=== PATIENT | female | born 1990 | race Caucasian/White ===

== ENCOUNTER 2018-05-14 09:15 | Inpatient (IN) | payer OTHER ==
[2018-05-14] MEDS ORDERED: Penicillin G 5 Million Unit Vial IVPB ONE (10:14)
[2018-05-14] MEDS ORDERED: Lactated Ringer's 1,000 ML IV ONE (10:14)
[2018-05-14] MEDS ORDERED: Lactated Ringer's 1,000 ML IV SCH (10:15)
[2018-05-14 10:36] LABS: BASO % 0.7 % (0.0-2.0); EOS # 0.1 K/uL (0.0-0.7); EOS % 1.9 % (0.0-4.0); HEMOGLOBIN 11.2 g/dL (11.0-16.0); LYMPH # 1.9 K/uL (1.0-4.3); LYMPH % 35.5 % (20.0-40.0); MEAN CELL VOLUME 78.8 fL (81.0-99.0); MEAN CORPUSCULAR HGB CONC 34.2 g/dL (33.0-37.0); MEAN PLATELET VOLUME 7.9 fL (7.2-11.7); MONO # 0.3 K/uL (0.0-0.8); MONO % 5.6 % (0.0-10.0); NEUT % 56.3 % (50.0-75.0); NRBC % 0.1 % (0.0-2.0); RBC 4.15 Mil/uL (3.80-5.20); RED CELL DISTRIBUTION WIDTH 15.6 % (11.5-14.5); WHITE BLOOD COUNT 5.4 K/uL (4.8-10.8)
[2018-05-14 10:48] LABS: ALBUMIN 3.8 g/dL (3.5-5.0); ALT/SGPT 16 U/L (9-52); AST/SGOT 18 U/L (14-36); BLOOD UREA NITROGEN 11 mg/dL (7-17); CALCIUM 9.4 mg/dl (8.6-10.4); GFR NON-AFRICAN AMERICAN > 60
[2018-05-14] MEDS ORDERED: Oxycodone/Acetaminophen 5/325 mg Tab PO PRN ×2 (11:01)
[2018-05-14] MEDS ORDERED: Benzocaine/Menthol 20%-0.5% Topical Spray (60 ml) TOP PRN (11:01)
[2018-05-14] MEDS ORDERED: Bupivacaine HCl/FentaNYL Cit 100 ML EPI ONE (11:02)
[2018-05-14] MEDS ORDERED: Oxytocin 30 UNIT 30 UNITS/500 ML BAG IV ONE ×2 (11:30→12:15)
[2018-05-14 13:35] LABS: SQUAMOUS EPITHIAL 3 /hpf (0-5); URINE BILIRUBIN NEGATIVE (NEGATIVE); URINE BLOOD NEGATIVE (NEGATIVE); URINE CLARITY Clear (Clear); URINE COLOR Straw (YELLOW); URINE GLUCOSE (UA) NORMAL (Normal); URINE LEUKOCYTE ESTERASE NEG Leu/uL (Negative); URINE PROTEIN NEGATIVE (NEGATIVE); URINE UROBILINOGEN NORMAL mg/dL (0.2-1.0)
--- NOTE | 2018-05-14 15:01 | OBHP ---
Datetime: 05/14/2018 14:32 Vital Signs Provider: Reviewed; Within Normal Limits Dilatation, Provider: 7 Effacement, Provider: 90 Station, Provider: 0 Datetime: 05/14/2018 10:34 IP Adm Impression: Term, intrauterine IP Admit Plan: Admit to unit Admit Comment, IP Provider: REGGIE "contractions, leakage of fluid" HPI: 28 year old at 39 weeks 0 days by US at 6.6 weeks on 10/05, per recdords and presented with complains of contractions described as low back and abdominal pain every 5 minutes. Sh e states her contractions started yesterday morning at 8am and have progressively worsened since. She states she has had leakage of fluid and blood which started last night at 8pm. She states she soaked her underwear twice last night. She admits to movement. Pt was interviewed via [employer] translation System. OBhx: 2009: Full term, baby boy, no complicaitons 2011: Full term, baby boy, no complications 2012: Full term, baby boy, no complications 2017: ectopic at 8 weeks, no surgery B[employer] SHE[employer]VER hx: LMP unsure Allergies: NKDA Medications: vitamins, Fe PMHx: anemia PSHx: none Social hx: denies alcohol, tobacco and drug use. . Assessment: 1. Term /Multiparity 2. SROM with bloody tinged fluid for more than 12 hours 3. Early labor 4. NST reactive 5. GBS Positive 6. Requesting an Epidural Plan: 1. Admit to L_D 2. Diet: NPO 3. IVF: LR @ 125cc/hr 4. Will start on Pen G for GBS prophylaxis 5. Will augment labor with Pitocin 6. Will order an EpidurAL 7. Anticipate a vaginal delivery 5. GBS positive per records Case discussed with Dr. Ren Terry, PGY1 Pelvic Type - PN: Adequate Extremities - PN: Normal Abdomen - PN: Normal Back - PN: Normal Breast - PN: Not Done Lungs - PN: Normal Heart - PN: Normal Thyroid - PN: Normal Neurologic - PN: Normal HEENT - PN: Normal General - PN: Normal FHR - Baseline A Provider: 140 Amniotic Fluid Color, Provider: Bloody Membranes, Provider: Ruptured Comments, ACOG Physical Exam: Gravid abdomen. Fundal height consistent with dates. Amnisure positive . IP Hx Assessment: The History has been Reviewed and is Current EGA AdmitDate IP: 40.5 IP Chief Complaint: Uterine contractions; Suspected ruptured membranes NICHD Variability Prov Fetus A: Moderate 6-25bpm NICHD Accel Fetus A IP Provider: 10X10 NICHD Decel Fetus A IP Provider: None Genitourinary Exam: Normal DTRs - PN: Normal
--- NOTE | 2018-05-14 15:10 | OBADHP ---
Datetime: 05/14/2018 14:32 FHR - Baseline A Provider: 130 Amniotic Fluid Color, Provider: Clear Membranes, Provider: Ruptured Contraction Comments Provider: 2-3 mins with Pitocin at 6 mU/min Vital Signs Provider: Reviewed; Within Normal Limits NICHD Variability Prov Fetus A: Moderate 6-25bpm NICHD Accel Fetus A IP Provider: 10X10 NICHD Decel Fetus A IP Provider: None Dilatation, Provider: 7 Effacement, Provider: 90 Station, Provider: 0 Datetime: 05/14/2018 10:34 Admit Comment, IP Provider: CC "contractions, leakage of fluid" HPI: 28 year old at 39 weeks 0 days by US at 6.6 weeks on 10/05, per recdords and presented with complains of contractions described as low back and abdominal pain every 5 minutes. Sh e states her contractions started yesterday morning at 8am and have progressively worsened since. She states she has had leakage of fluid and blood which started last night at 8pm. She states she soaked her underwear twice last night. She admits to movement. Pt was interviewed via [employer] translation System. 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 . Assessment: 1. Term /Multiparity 2. SROM with bloody tinged fluid for more than 12 hours 3. Early labor 4. NST reactive 5. GBS Positive 6. Requesting an Epidural Plan: 1. Admit to L_D 2. Diet: NPO 3. IVF: LR @ 125cc/hr 4. Will start on Pen G for GBS prophylaxis 5. Will augment labor with Pitocin 6. Will order an EpidurAL 7. Anticipate a vaginal delivery Case discussed with Dr. Ren Terry, PGY1 Pelvic Type - PN: Adequate Extremities - PN: Normal Abdomen - PN: Normal Back - PN: Normal Breast - PN: Not Done Lungs - PN: Normal Heart - PN: Normal Thyroid - PN: Normal Neurologic - PN: Normal HEENT - PN: Normal General - PN: Normal Comments, ACOG Physical Exam: Gravid abdomen. Fundal height consistent with dates. Amnisure positive . IP Hx Assessment: The History has been Reviewed and is Current IP Chief Complaint: Uterine contractions; Suspected ruptured membranes Genitourinary Exam: Normal DTRs - PN: Normal EGA AdmitDate IP: 40.5 IP Adm Impression: Term, intrauterine IP Admit Plan: Admit to unit
--- NOTE | 2018-05-14 15:38 | OBPN ---
Datetime: 05/14/2018 14:32 IP Progress Impression: Reassuring heart rate IP Informed Consent Obtain: Vaginal Delivery IP Procedures: Sterile Vag Exam; Sterile Speculum Exam IP Progress Plan: Continue present management; Anticipate Vaginal Delivery Membranes, Provider: Ruptured Amniotic Fluid Color, Provider: Clear Contraction Comments Provider: 2-3 mins with Pitocin at 6 mU/min FHR - Baseline A Provider: 130 IP Progress Note Comment: Patient is resting comfortably. Pain well controlled with Epidural. Artificial ROM of residual bag. tracing reassuring Continue Pitocin for augmentation Anticipate vaginal delivery. Case discussed with Dr. Ren Terry, PGY1 Vital Signs Provider: Reviewed; Within Normal Limits NICHD Accel Fetus A IP Provider: 10X10 NICHD Variability Prov Fetus A: Moderate 6-25bpm Dilatation, Provider: 7 Effacement, Provider: 90 Station, Provider: 0 NICHD Decel Fetus A IP Provider: None
[2018-05-14] MEDS ORDERED: Lidocaine 2% MPF (5 ml) Inj ONE (15:53)
--- NOTE | 2018-05-14 16:50 | OBDS ---
DELIVERY PERSONNEL Delivery Doctor: Timothy Mcclure DO Scrub Nurse: Xin Chavarria RN Road Worker: Atiya Odom RN Anesthesiologist: Dr. Pavon Resident: Joey Terry DO MATERNAL INFORMATION Delivery Anesthesia: Epidural Estimated Blood Loss (ml): 200 Placenta Cultured: No Maternal Complications: None RN Comments: Liveborn baby girl Provider Comments: of live female from SHANDRA position with APGARS 9/9, with weight of 6lb s 4oz after transecting nuchal cord x1 and over an intact perineum. No lacerations. EBL of 200ml. Placenta, cord blood obtained and cord blood sent. No complications. Patient and both tolerated procedure well and both remained in the delivery room in stable and satisfactory condition.. Joey Terry, PGY1 LABOR SUMMARY EDC: 05/21/2018 00:00 No. Babies in Womb: 1 LABOR INFORMATION Reason for Induction: Not Applicable Steroids Given: None Reason Steroids Not Administered: Not Applicable MEMBRANES Membranes Rupture Method: Spontaneous Rupture of Membranes: 05/13/2018 20:00 Length of Rupture (hrs): 19.98 Amniotic Fluid Color: Clear Amniotic Fluid Amount: Small Amniotic Fluid Odor: Normal STAGES OF LABOR Stage 3 hrs: 0 Stage 3 min: 5 VAGINAL DELIVERY Episiotomy: None Laceration Extension: N/A Laceration Type: None Laceration Repair: Not Applicable Initial Vag Sponge Count: 10 Final Vag Sponge Count: 10 Initial Vag Sharps Count: 0 Final Vag Sharps Count: 0 Sponge Count Correct: Yes; Vaginal Sweep Performed Sharps Count Correct: Yes BABY A INFORMATION Infant Delivery Date/Time: 05/14/2018 15:59 Method of Delivery: Vaginal Born in Route : No : N/A Forceps: N/A Vacuum Extraction: N/A Shoulder Dystocia : No SHOULDER DYSTOCIA BABY A Delivery Date/Time: 05/14/2018 15:59 PRESENTATION/POSITION BABY A Presentation: Cephalic Cephalic Presentation: Vertex Vertex Position: Right Occipital Anterior Breech Presentation: N/A PLACENTA INFORMATION BABY A Placenta Delivery Time : 05/14/2018 16:04 Placenta Method of Delivery: Spontaneous Placenta Status: Delivered SCORES BABY A Heart Rate 1 min: >100 bpm Resp Effort 1 min: Good Cry Reflex Irritability 1 min: Cough or Sneeze or Pulls Away Muscle Tone 1 min: Active Motion Color 1 min: Body [place], Extremities Blue Resuscitation Effort 1 min: N/A SCORE 1 MIN: 9 Heart Rate 5 min: >100 bpm Resp Effort 5 min: Good Cry Reflex Irritability 5 min: Cough or Sneeze or Pulls Away Muscle Tone 5 min: Active Motion Color 5 min: Body [place], Extremities Blue Resuscitation Effort 5 min: N/A SCORE 5 MIN: 9 INFANT INFORMATION BABY A Gestational Age at Delivery: 39.0 Gestational Status: Term Outcome : Liveborn Condition : Stable Sex: Female IDENTIFICATION/MEDS BABY A ID Band Number: [id number] ID Band Location: Left Leg; Left Arm Sensor Applied: Yes Sensor Number: [id number] Sensor Location : Cord Clamp WEIGHT/LENGTH BABY A Infant Birthweight (gms): 2835 Infant Weight (lb): 6 Weight (oz): 4 Infant Length Inches: 18.50 Length cms: 47.0 CORD INFORMATION BABY A No. Cord Vessels: 3 Nuchal Cord : Around Neck x1, Tight Suction: Mouth; Nose
[2018-05-15] MEDS: Oxycodone/Acetaminophen 5/325 mg Tab PO PRN ×2 (06:52→11:28)
[2018-05-15 07:09] LABS: BASO % 0.5 % (0.0-2.0); EOS # 0.1 K/uL (0.0-0.7); EOS % 1.7 % (0.0-4.0); LYMPH # 1.7 K/uL (1.0-4.3); LYMPH % 33.1 % (20.0-40.0); MEAN CELL VOLUME 79.3 fL (81.0-99.0); MEAN CORPUSCULAR HEMOGLOBIN 26.6 pg (27.0-31.0); MEAN CORPUSCULAR HGB CONC 33.5 g/dL (33.0-37.0); MEAN PLATELET VOLUME 8.2 fL (7.2-11.7); MONO # 0.4 K/uL (0.0-0.8); NEUT % 57.7 % (50.0-75.0); NRBC % 0.2 % (0.0-2.0); RBC 4.16 Mil/uL (3.80-5.20); RED CELL DISTRIBUTION WIDTH 15.6 % (11.5-14.5); WHITE BLOOD COUNT 5.3 K/uL (4.8-10.8)
--- NOTE | 2018-05-15 08:16 | OBPPN ---
Datetime: 05/15/2018 08:11 PP Pain Prov: Within normal limits PP Nausea Prov: Denies PP Flatus Prov: No PP BM Prov: No PP Heart Prov: Normal PP Lungs Prov: Normal PP Abdomen/Uterus Prov: Normal PP Lochia Prov: Normal PP Vulva/Perineum Prov: Normal PP Comments Phys Exam Prov: S1/S2 lungs clear bilaterally fundus firm no calf pain PP Impression Prov: Normal progression PP Plan Prov: Continue present management PP Progress Note Prov: patient seen and examined this morning denies ZIEGLER, CP, SOB, N/V tolerating regular diet ambulating and voiding without difficulty breast and bottle feeding infant morning labs drawn, results pending continue routine post care IP PP Procedures: None Vital Signs Provider PP: Reviewed; Within Normal Limits
[2018-05-16] MEDS: Oxycodone/Acetaminophen 5/325 mg Tab PO PRN (06:07)
[2018-05-16 07:51] VITALS: BP 100/69; PULSE 69; RESP 20; TEMP 97.8; O2SAT 100
[2018-05-16] MEDS ORDERED: Influenza Vaccine 60 MCG/0.5 ML SYR (3 yr & up) IM ONE (08:30)
--- NOTE | 2018-05-16 12:49 | OBPPN ---
Datetime: 05/16/2018 12:41 PP Pain Prov: Within normal limits PP Nausea Prov: Denies PP Breasts Prov: Not Done PP Heart Prov: Normal PP Lungs Prov: Normal PP Abdomen/Uterus Prov: Normal PP Lochia Prov: Normal PP Vulva/Perineum Prov: Normal PP CVA Tenderness Prov: Normal PP Extremities Prov: Normal PP C/S Incision Prov: Not Applicable PP Progress Prov: Normal PP Comments Phys Exam Prov: Fundus firm and non-tender PP Impression Prov: Normal progression PP Plan Prov: Continue present management; Discharge PP Progress Note Prov: PPD # 2 S/P without complications PP H_H 11.0/33.0 and asymptomatic without problems Stable and Satisfactory condition and recovery Plan to discharge home IP PP Procedures: None
--- NOTE | 2018-05-16 12:51 | OBDCSUM ---
Datetime: 05/15/2018 11:48 Discharge Instructions, Provider: Routine instructions given Discharge Diagnosis, Provider: Term Delivered Discharge Time: 05/16/2018 12:48 Contraception discussed, Prov: Yes Discharge Comment, Provider: PPD # 2 S/P without complications PP H_H 11.0/33.0 and asymptomatic without problems Stable and Satisfactory condition and recovery Discharged home with instructions and Rx for Motrin Will continue PNV daily x 3-4 more month Increase po water intake Contraception after Delivery: Undecided
== END 2018-05-16 12:30 | disposition home or self-care (01) | DRG 373 ==
LOC: C.EROB 09:15 → C.4D 10:08 → C.4M 17:52
PROVIDERS: ADMIT Obstetrics & Gynecology; ATTEND Obstetrics & Gynecology
PROC: 10E0XZZ Delivery of Products of Conception, External Approach (ICD-10-PCS; principal; 2018-05-14)
DX: O99.824 Streptococcus B carrier state complicating childbirth (principal); O69.1XX0 Labor and delivery complicated by cord around neck, with compression, not applicable or unspecified; Z3A.39 39 weeks gestation of pregnancy; Z37.0 Single live birth